=== PATIENT | male | born 1965 | race African-American/Black ===

== ENCOUNTER 2023-06-07 18:04 | Inpatient (IN) ==
[2023-06-07] MEDS ORDERED: Al Hydrox/Mg Hydrox/Simet LIQ 30 ML UDC PO PRN (18:18)
[2023-06-07] MEDS: Nicotine Lozenge mini 4 MG LOZNG.MINI MT PRN (22:00)
[2023-06-08] MEDS: Mometasone/Formoter 100/5 MDI INH SCH ×2 (08:27→20:09)
[2023-06-08] MEDS: Nicotine PATCH 14 MG/24 HR PATCH TRANSDERM SCH (08:28)
[2023-06-08] MEDS: Vitamin THERAPEUTIC TAB PO SCH (08:29)
[2023-06-08] MEDS: Nicotine Lozenge mini 4 MG LOZNG.MINI MT PRN (16:30)
[2023-06-09] MEDS: Mometasone/Formoter 100/5 MDI INH SCH ×2 (07:25→17:57)
[2023-06-09] MEDS: Nicotine PATCH 14 MG/24 HR PATCH TRANSDERM SCH (07:25)
[2023-06-09] MEDS: Vitamin THERAPEUTIC TAB PO SCH (07:26)
[2023-06-09] MEDS: Albuterol HFA INHALER 8 gm MDI INH PRN ×2 (12:05→20:21)
[2023-06-09] MEDS: Nicotine Lozenge mini 4 MG LOZNG.MINI MT PRN ×2 (18:42→21:16)
[2023-06-10] MEDS: Mometasone/Formoter 100/5 MDI INH SCH ×3 (06:39→19:49)
[2023-06-10] MEDS: Nicotine Lozenge mini 4 MG LOZNG.MINI MT PRN ×2 (06:40→20:01)
[2023-06-10] MEDS: Nicotine PATCH 14 MG/24 HR PATCH TRANSDERM SCH (08:24)
[2023-06-10] MEDS: Vitamin THERAPEUTIC TAB PO SCH (08:25)
[2023-06-11] MEDS: Mometasone/Formoter 100/5 MDI INH SCH (06:26)
[2023-06-11] MEDS: Vitamin THERAPEUTIC TAB PO SCH (09:43)
[2023-06-11] MEDS: Nicotine PATCH 14 MG/24 HR PATCH TRANSDERM SCH (09:44)
== END 2023-06-11 18:07 | disposition home or self-care (01) | DRG 885 ==
LOC: BSU 21:37
PROVIDERS: ADMIT Psychiatry & Neurology Psychiatry; ATTEND Psychiatry & Neurology Psychiatry